=== PATIENT | female | born 1990 | race Caucasian/White ===

== ENCOUNTER 2016-08-11 21:12 | Emergency (ER) | payer MEDICAID ==
[~2016-08-11] VITALS: Ht 160 cm; Wt 74.0 kg
[~2016-08-11 21:12] MED LIST: PRENATAL VITAMINS; antibiotic
[2016-08-11] MEDS ORDERED: CYCLOBENZAPRINE 10MG TABLET PO ONE (22:45)
[2016-08-11] MEDS ORDERED: KETOROLAC 60MG/2ML VIAL IM ONE (22:45)
[2016-08-11 23:15] VITALS: BP 112/62
== END 2016-08-12 00:50 | disposition home or self-care (01) ==
LOC: ER 21:12
DX: M54.5 Low back pain (principal); M54.30 Sciatica, unspecified side; G89.29 Other chronic pain; J45.909 Unspecified asthma, uncomplicated; F17.200 Nicotine dependence, unspecified, uncomplicated; W07.XXXA Fall from chair, initial encounter; Y93.89 Activity, other specified; Y99.8 Other external cause status; Y92.89 Other specified places as the place of occurrence of the external cause
CPT/HCPCS: 81025; 96372; 99283; J1885